=== PATIENT | female | born 1975 | race Caucasian/White ===

== ENCOUNTER 2016-10-23 04:52 | Day surgery (SDC) | payer BC ==
[~2016-10-23 04:52] MED LIST: CITRUCEL500 MG PO; DEPO-PROVER400 MG/ML IM; FLEX PO; MICARDIS40 PO; MULTIPLE VIT PO; NORCO1 TA2 PO; PRAVACHOL40 MG PO; PRILOSEC40 MG PO; [UNRECOGNIZED DRUG - OTHER]
== END 2016-10-23 07:22 | disposition home or self-care (01) ==
LOC: SDC 04:52
PROVIDERS: Orthopaedic Surgery
PROC: 3E0R3CZ (ICD-10-PCS; 2016-10-23)
PROC: 3E0R33Z Introduction of Anti-inflammatory into Spinal Canal, Percutaneous Approach (ICD-10-PCS; principal; 2016-10-23 07:30)
DX: M54.17 Radiculopathy, lumbosacral region (principal); I10 Essential (primary) hypertension; E78.00 Pure hypercholesterolemia, unspecified; J45.909 Unspecified asthma, uncomplicated; M19.90 Unspecified osteoarthritis, unspecified site; K21.9 Gastro-esophageal reflux disease without esophagitis; G43.909 Migraine, unspecified, not intractable, without status migrainosus; Z98.890 Other specified postprocedural states
CPT/HCPCS: 84703; J1040; J2250; J3010; Q9967

== ENCOUNTER 2016-11-06 05:02 | Day surgery (SDC) | payer BC | END 2016-11-06 23:59 | disposition home or self-care (01) | LOC: SDC 05:02 | PROVIDERS: Orthopaedic Surgery | PROC: 3E0R3BZ Introduction of Anesthetic Agent into Spinal Canal, Percutaneous Approach (ICD-10-PCS; 2016-11-06) | PROC: B01BYZZ Fluoroscopy of Spinal Cord using Other Contrast (ICD-10-PCS; 2016-11-06) | PROC: 3E0R33Z Introduction of Anti-inflammatory into Spinal Canal, Percutaneous Approach (ICD-10-PCS; principal; 2016-11-06 07:00) | DX: M54.17 Radiculopathy, lumbosacral region (principal); I10 Essential (primary) hypertension; E78.00 Pure hypercholesterolemia, unspecified; G43.909 Migraine, unspecified, not intractable, without status migrainosus; J45.909 Unspecified asthma, uncomplicated; M19.90 Unspecified osteoarthritis, unspecified site; K21.9 Gastro-esophageal reflux disease without esophagitis; Z98.890 Other specified postprocedural states | CPT/HCPCS: 84703; J1040; J2250; J3010; Q9967 ==